=== PATIENT | female | born 1995 | race Caucasian/White ===

== ENCOUNTER 2016-08-07 11:46 | Emergency (ER) | payer OTHER ==
[~2016-08-07] VITALS: Ht 157.5 cm; Wt 54.4 kg
[~2016-08-07 11:46] MED LIST: BACTRIM DS TAB1 EACH PO; CIPRO500 M1 PO; IBUPROFEN800 M1 PO; KETOROLAC TROME10 M1 PO; NITROFURANTOIN100 M6 PO; OXYCODONE-ACET1 EACH PO; PANTOPRAZOLE SO40 M1 PO; TYLENOL WITH C1 EACH PO; ZOFRAN ODT4 M1 SL
[2016-08-07 11:51] VITALS: BP 125/78
[2016-08-07] MEDS ORDERED: ESCITALOPRAM OX10 MG PO (12:03)
[2016-08-07 12:17] LABS: ABSOLUTE BASOPHIL COUNT 0 /CUMM (0.0-0.2); ABSOLUTE EOSINOPHIL COUNT 0.1 /CUMM (0.0-0.7); ABSOLUTE GRANULOCYTE CT 5.9 /CUMM (1.4-6.5); ABSOLUTE LYMPH COUNT 1.7 /CUMM (1.2-3.4); ABSOLUTE MONOCYTE COUNT 0.6 /CUMM (0.10-0.60); BASOPHIL % 0.4 % (0.0-2.0); EOSINOPHIL % 1.5 % (0-5); HEMATOCRIT 36.3 % (37-47); MEAN CORPUSCULAR HGB 31.4 PG (27.0-31.0); MEAN CORPUSCULAR HGB CONC 33.7 G/DL (33.0-37.0); MEAN PLATELET VOLUME 8.1 FL (7.4-10.4); PLATELET COUNT 256 /CUMM (130-400); RBC DISTRIBUTION WIDTH 13.1 % (11.5-14.5); RED BLOOD CELL CT 3.91 /CUMM (4.20-5.40); WHITE BLOOD CELL COUNT 8.3 /CUMM (4.8-10.8)
--- NOTE | 2016-08-07 12:25 | ED AMS/SEIZURE/WEAK/DIZZY ---
History of Present Illness General Chief Complaint: General Adult Stated Complaint: DIZZY, WEAK, TIRED, X 2 WEEKS Source: patient Exam Limitations: no limitations Vital Signs & Intake/Output Vital Signs & Intake/Output Vital Signs Date Time Temp Pulse Resp B/P B/P Pulse O2 O2 Flow FiO2 Mean Ox Delivery Rate 08/07 1420 80 16 98 Room Air 08/07 1151 96.4 76 20 125/78 98 Room Air Allergies Coded Allergies: No Known Allergies (10/18/15) Reconcile Medications Escitalopram Oxalate 10 MG TABLET 1 TAB PO BID DEPRESSION (Reported) Triage Note: PT TO ED C/O LIGHTHEADED, DIZZY X 2 WEEKS. 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 PT HAS HAD A BLOOD TRANSFUSION IN THE PAST AFTER SURGERY. DENIES PAIN, C/P, DIFF BREATHING. Triage Nurses Notes Reviewed? yes Onset: Abrupt Duration: week(s): (2), constant, continues in ED Timing: recent history Injury Environment: home No Modifying Factors: none : No Patient currently breastfeeds: No HPI: 21-year-old female comes into emergency room for further evaluation of increased weakness fatigue dizziness and lightheadedness has been going on for the past couple weeks. She denies any past medical history. She reports back in October she had gone a blood transfusion secondary to some bleeding from a laparoscopy surgery. She denies any vomiting. Denies any tick bites. Denies any fevers. Denies any changes in appetite. Denies any other associated symptoms. (CLARITZA CONTRERAS) Past History Travel History Traveled to [place] past 21 day No Medical History Any Pertinent Medical History? 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 No (CLARITZA CONTRERAS) Review of Systems Review of Systems Constitutional: Reports: see HPI. EENTM: Reports: no symptoms. Respiratory: Reports: no symptoms. Cardiovascular: Reports: no symptoms. GI: Reports: no symptoms. Genitourinary: Reports: no symptoms. Musculoskeletal: Reports: no symptoms. Skin: Reports: no symptoms. Neurological/Psychological: Reports: no symptoms. Hematologic/Endocrine: Reports: no symptoms. Immunologic/Allergic: Reports: no symptoms. All Other Systems: Reviewed and Negative (CLARITZA CONTRERAS) Physical Exam Physical Exam General Appearance: well developed/nourished, no apparent distress, alert, awake Head: atraumatic, normal appearance Eyes: Bilateral: normal appearance. Ears, Nose, Throat: normal pharynx, normal ENT inspection, hearing grossly normal Neck: normal inspection Respiratory: normal breath sounds, no respiratory distress Cardiovascular: regular rate/rhythm Gastrointestinal: soft, non-tender Back: normal inspection Extremities: normal range of motion Neurologic/Psych: no motor/sensory deficits, awake, alert, oriented x 3, normal gait, normal mood/affect Skin: intact, normal color Core Measures ACS in differential dx? No CVA/TIA Diagnosis: No Severe Sepsis Present: No Septic Shock Present: No (CLARITZA CONTRERAS) Progress Differential Diagnosis: alcohol intoxication, anemia, benign positional vertigo, dehydration, drug intoxication, electrolyte imbalance, hypoglycemia, intracranial Hem., multiple sclerosis, presyncope, post-traumatic vertigo, subarachnoid Hem., vertebrobasilar insuff, cardiac arrhythmia, vitamin D deficiency, folic acid and vitamin B12 deficiency, hypothyroid, tick borne disease, Plan of Care: Orders Procedure Date/time Status Regular Diet 08/07 D Active Diet Message 08/07 1354 Active URINALYSIS 08/07 1313 Complete Add-on Test (ER Only) 08/07 1312 Active MISTAKE 08/07 1225 Active EKG 08/07 1225 Active Add-on Test (ER Only) 08/07 1220 Active HUMAN BETA HCG SCREEN 08/07 1205 Complete COMPREHENSIVE METABOLIC PANEL 08/07 1205 Complete CBC WITHOUT DIFFERENTIAL 08/07 1205 Complete Laboratory Tests 08/07/16 1335: Urine Color YEL, Urine Clarity HAZY H, Urine pH 6.5, Ur Specific [place] 1.020, Urine Protein NEG, Urine Ketones NEG, Urine Nitrite NEG, Urine Bilirubin NEG, Urine Urobilinogen 0.2, Ur Leukocyte Esterase NEG, Ur Microscopic SEDIMENT EXAMINED, Urine RBC RARE, Urine WBC 1-3 H, Ur Epithelial Cells MANY H, Urine Bacteria MANY H, Urine Hemoglobin NEG, Urine Glucose NEG 08/07/16 1208: CBC w Diff NO MAN DIFF REQ, RBC 3.91 L, MCV 93.0, MCH 31.4 H, RDW 13.1, MPV 8.1, Gran % 71.0, Lymphocytes % 20.3 L, Monocytes % 6.8, Eosinophils % 1.5, Basophils % 0.4, Absolute Granulocytes 5.9, Absolute Lymphocytes 1.7, Absolute Monocytes 0.6, Absolute Eosinophils 0.1, Absolute Basophils 0, PUBS MCHC 33.7 08/07/16 1205: Anion Gap 10, Estimated GFR > 60, BUN/Creatinine Ratio 21.4, Glucose 94, Calcium 8.9, Total Bilirubin 0.4, AST 18, ALT 28, Alkaline Phosphatase 45, Total Protein 6.7, Albumin 4.1, Globulin 2.6, Albumin/Globulin Ratio 1.6, Total Beta HCG NEGATIVE Initial ED EKG: normal intervals, normal p-waves, normal QRS complex, normal sinus rhythm, rate (66) (KIAN GOFF,CLARITZA) Departure Departure Disposition: HOME OR SELF CARE Condition: Stable Clinical Impression Primary Impression: General weakness Referrals: LAURA JACOBS,CLAUDETTE Baxter (PCP/Family) Additional Instructions: Follow-up with your primary care doctor for further testing. Return if any concerns worsening symptoms. Please go over all results of today's visit with your primary care doctor. Contact your primary care doctor to let them know you were here in the emergency room. There may be nonspecific findings which may not be related to your visit today here in the emergency room but may require further evaluation and chronic monitoring by your primary care doctor. If you had a laceration today the chance of foreign body always remains. You should follow-up with your primary care doctor for recheck in 3-5 days for a wound check. If you had an x-ray done there is a chance that a fracture could have been missed on initial read and you should follow-up with your primary care doctor for repeat x-rays if symptoms persist. If your blood pressure was elevated here in the emergency room please have rechecked by her primary care doctor within the next 48 hours by your primary care doctor. If you were prescribed a narcotic here in the emergency room or any type of controlled substances you're not allowed to drive while taking this medication or operate any type of heavy machinery. Narcotics can make you feel lightheaded dizziness nausea and can cause constipation. You may need to poultry picking machine tender a stool softener. Thank you for choosing [facility] emergency room. Please return to the emergency room immediately if you have any other concerns worsening of symptoms. Departure Forms: Customer Survey General Discharge Information Comments 08/07/2016 2:41:03 PM Patient clinically looks well. Patient is in no apparent distress. Patient is nontoxic-appearing. Resting comfortably in room. There is no evidence of any type of anemia or electrolyte abnormality. Patient was recommended to follow-up with her primary care doctor for further testing. Not orthostatic. (CLARITZA CONTRERAS) PA/SENIOR STAFF CONSULTANT Co-Sign Statement Statement: ED Attending supervision documentation- I saw and evaluated the patient. I have also reviewed all the pertinent lab results and diagnostic results. I agree with the findings and the plan of care as documented in the PA's/SENIOR STAFF CONSULTANT's documentation. x I have reviewed the ED Record and agree with the PA's/SENIOR STAFF CONSULTANT's documentation. [] Additions or exceptions (if any) to the PAs/SENIOR STAFF CONSULTANT's note and plan are summarized below: [] (ROSANA JACOBS,JAMAR)
== END 2016-08-07 14:21 ==
LOC: ERH 11:46
PROVIDERS: Physician Assistant Medical
DX: R53.1 Weakness (principal)
CPT/HCPCS: 81001; 93005; 93010

== ENCOUNTER 2017-07-09 15:49 | Emergency (ER) | payer OTHER ==
[~2017-07-09] VITALS: Ht 157.5 cm; Wt 69.9 kg
[~2017-07-09 15:49] MED LIST changes: +ESCITALOPRAM OX10 MG PO
[2017-07-09] MEDS ORDERED: AUGMENTIN 875-1 EACH PO (20:13)
[2017-07-09] MEDS ORDERED: DIFLUCAN150 M1 PO (20:14)
--- NOTE | 2017-07-09 20:14 | ED ANIMAL BITE/WOUND CHECK ---
History of Present Illness General Chief Complaint: Animal/Insect Bite Stated Complaint: CAT SCRATCH AND BITE TO FACE AT WORK Source: patient, old records, friend Exam Limitations: no limitations Vital Signs & Intake/Output Vital Signs & Intake/Output Vital Signs Date Time Temp Pulse Resp B/P B/P Pulse O2 O2 Flow FiO2 Mean Ox Delivery Rate 07/09 1612 98.5 82 18 121/81 99 Room Air Allergies Coded Allergies: No Known Allergies (10/18/15) Reconcile Medications Escitalopram Oxalate 10 MG TABLET 1 TAB PO BID DEPRESSION (Reported) Ibuprofen 800 MG TABLET 1 TAB PO TID headache Ondansetron (Zofran Odt) 4 MG TAB.RAPDIS 1 TAB SL TID nausea Triage Note: 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 Triage Nurses Notes Reviewed? yes Onset: Just prior to arrival Duration: hour(s):, constant, continues in ED Timing: single episode today Injury Environment: work Is Injury an Animal Bite? No Animal Type: cat Context of Animal Attack: approached animal, entered animal's domain Appearance of Animal: appeared ill Animal Immunization Status: unknown Observation/Capture: animal known/obs x10 days Severity of Attack: scratched Severity: mild LMP (ages 10-50): unknown : No Patient currently breastfeeds: No HPI: Several hours prior to admission while at work patient was scratched in the face by Pet cat at work. The immunization status is unknown. Patient denies fever chills nausea vomiting diarrhea abdominal pain chest pain shortness breath headache dysuria rash bleeding Past History Travel History Traveled to [place] past 21 day No Medical History Any Pertinent Medical History? 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 No Review of Systems Review of Systems Constitutional: Reports: no symptoms. EENTM: Reports: no symptoms. Respiratory: Reports: no symptoms. Cardiovascular: Reports: no symptoms. GI: Reports: no symptoms. Genitourinary: Reports: no symptoms. Musculoskeletal: Reports: no symptoms. Skin: Reports: see HPI. Neurological/Psychological: Reports: no symptoms. Hematologic/Endocrine: Reports: no symptoms. Immunologic/Allergic: Reports: no symptoms. All Other Systems: Reviewed and Negative Physical Exam Physical Exam General Appearance: well developed/nourished, alert, awake, comfortable Head: Left cheek right lateral forehead with scattered abrasions Eyes: Bilateral: PERRL, EOMI. Ears, Nose, Throat: normal pharynx, normal ENT inspection, hearing grossly normal Neck: normal inspection, supple, full range of motion, no midline tenderness Respiratory: normal breath sounds, chest non-tender, no respiratory distress, quiet respiration, lungs clear Cardiovascular: regular rate/rhythm, normal peripheral pulses, norml femoral pulses equa Peripheral Pulses: 4+ carotid (R), 4+ carotid (L) Gastrointestinal: normal bowel sounds, soft, non-tender, no organomegaly Back: normal inspection Extremities: normal range of motion Neurologic/Psych: awake, alert, oriented x 3, normal mood/affect Reflexes: 2+: bicep (R), bicep (L). Skin: normal color, warm/dry, scattered abrasions left cheek right lateral forehead Lymphatic: no anterior cervical hillary Progress Differential Diagnosis: abscess, cellulitis Plan of Care: rabies augmentin Departure Departure Time of Disposition: 2011 Disposition: HOME OR SELF CARE Condition: Stable Clinical Impression Primary Impression: Cat scratch of face Referrals: Bri English MD (PCP/Family) Departure Forms: Customer Survey General Discharge Information Industrial Accident Report Prescriptions: Current Visit Scripts Amoxicillin/Potassium Clav (Augmentin 875-125 Tablet) 1 TAB PO BID #20 TAB Fluconazole (Diflucan) 1 TAB PO ONCE #2 TAB 1 tab today then 1 tab at completion of antibiotics
[2017-07-09 20:23] VITALS: BP 138/90
== END 2017-07-09 20:24 ==
LOC: ERH 15:49
DX: S00.81XA Abrasion of other part of head, initial encounter (principal); W55.03XA Scratched by cat, initial encounter; Y93.9 Activity, unspecified; Y92.9 Unspecified place or not applicable
CPT/HCPCS: 90376; 90471; 96372